=== PATIENT | female | born 1955 | race Caucasian/White ===

== ENCOUNTER 2017-05-12 05:41 | Observation (INO) | payer BC ==
--- NOTE | 2017-05-12 05:49 | EDM.PDOC ---
ED HPI GENERAL MEDICAL PROBLEM - General Chief Complaint: Chest Pain Stated Complaint: CHEST PAINS Time Seen by Provider: 05/12/17 05:46 - History of Present Illness INITIAL COMMENTS - FREE TEXT/NARRATIVE: HISTORY AND PHYSICAL: History of present illness: Patient is a 62-year-old white female presents with chest pain started last night this midsternal vaguely describes no palpitations she equivocates regarding shortness of breath to the no nausea no vomiting no diaphoresis she denies history of known coronary artery disease she is a smoker Review of systems: As per history of present illness and below otherwise all systems reviewed and negative. Past medical history: As per history of present illness and as reviewed below otherwise noncontributory. Surgical history: As per history of present illness and as reviewed below otherwise noncontributory. Social history: No reported history of drug or alcohol abuse. Family history: As per history of present illness and as reviewed below otherwise noncontributory. Physical exam: HEENT: Atraumatic, normocephalic, pupils reactive, negative for conjunctival pallor or scleral icterus, mucous membranes moist, throat clear, neck supple, nontender, trachea midline. Lungs: Clear to auscultation, breath sounds equal bilaterally, chest nontender. Heart: S1S2, regular, negative for clicks, rubs, or JVD. Abdomen: Soft, nondistended, nontender. Negative for masses or hepatosplenomegaly. Negative for costovertebral tenderness. Pelvis: Stable nontender. Genitourinary: Deferred. Rectal: Deferred. Extremities: Atraumatic, negative for cords or calf pain. Neurovascular unremarkable. Neuro: Awake, alert, oriented. Cranial nerves II through XII unremarkable. Cerebellum unremarkable. Motor and sensory unremarkable throughout. Exam nonfocal. Diagnostics: CBC CMP troponin d-dimer PT/INR chest x-ray EKG Therapeutics: IV O2 monitor aspirin 324 mg by mouth Impression: #1 chest pain Definitive disposition and diagnosis as appropriate pending reevaluation and review of above. 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: Musculoskeletal History: Reports: None Neurological History: Reports: Seizure Psychiatric History: Reports: Anxiety Endocrine/Metabolic History: Reports: Hypothyroidism Hematologic History: Reports: None Immunologic History: Reports: None Oncologic (Cancer) History: Reports: None Dermatologic History: Reports: None - Infectious Disease History Infectious Disease History: Reports: Chicken Pox - Past Surgical History Female Surgical History: Reports: Section Social & Family History - Family History Family Medical History: Noncontributory - Tobacco Use Smoking Status *Q: Current Every Day Smoker Years of Tobacco use: 40 Packs/Tins Daily: 1 - Recreational Drug Use Recreational Drug Use: No ED ROS GENERAL - Review of Systems Review Of Systems: ROS reveals no pertinent complaints other than HPI. ED EXAM, GENERAL - Physical Exam Exam: See Below (See dictation) Course - Vital Signs Last Recorded V/S: Last Vital Signs Temp 36.4 C 05/12/17 05:46 Pulse 89 05/12/17 06:21 Resp 17 05/12/17 06:21 BP 90/61 05/12/17 06:21 Pulse Ox 98 05/12/17 06:21 - Orders/Labs/Meds Orders: Active Orders 24 hr Category Date Time Status Chest 1V Frontal [CR] Stat Exams 05/12/17 05:52 Taken Nitroglycerin [Nitrostat] Med 05/12/17 05:56 Active 0.4 mg SL Q5M PRN Sodium Chloride 0.9% [Normal Saline] 1,000 ml Med 05/12/17 06:16 Active IV .Bolus Medication Orders Sodium Chloride (Normal Saline) 1,000 mls @ 999 mls/hr IV .Bolus ONE Stop: 05/12/17 07:16 Last Admin: 05/12/17 06:17 Dose: 999 mls/hr Nitroglycerin (Nitrostat) 0.4 mg SL Q5M PRN PRN Reason: Chest Pain Last Admin: 05/12/17 06:07 Dose: 0.4 mg Admin: 05/12/17 06:04 Dose: 0.4 mg Labs: Laboratory Tests 05/12/17 05/12/17 05/12/17 Range/Units 05:49 05:49 05:49 WBC 6.92 (4.0-11.0) K/uL RBC 5.24 (4.30-5.90) M/uL Hgb 16.0 (12.0-16.0) g/dL Hct 47.3 H (36.0-46.0) % MCV 90.3 (80.0-98.0) fL MCH 30.5 (27.0-32.0) pg MCHC 33.8 (31.0-37.0) g/dL RDW Std Deviation 46.8 (28.0-62.0) fl RDW Coeff of Sheila 14 (11.0-15.0) % Plt Count 180 (150-400) K/uL MPV 10.40 (7.40-12.00) fL Neut % (Auto) 46.4 L (48.0-80.0) % Lymph % (Auto) 39.0 (16.0-40.0) % Branch % (Auto) 10.7 (0.0-15.0) % Eos % (Auto) 3.5 (0.0-7.0) % Baso % (Auto) 0.4 (0.0-1.5) % Neut # (Auto) 3.2 (1.4-5.7) K/uL Lymph # (Auto) 2.7 H (0.6-2.4) K/uL Branch # (Auto) 0.7 (0.0-0.8) K/uL Eos # (Auto) 0.2 (0.0-0.7) K/uL Baso # (Auto) 0.0 (0.0-0.1) K/uL Nucleated RBC % 0.0 /100WBC Nucleated RBCs # 0 K/uL D-Dimer, Quantitative 0.22 (0.0-0.52) mg/LFEU Sodium 141 (136-146) mmol/L Potassium 4.2 (3.5-5.1) mmol/L Chloride 105 (98-110) mmol/L Carbon Dioxide 27 (21-31) mmol/L BUN 9 (6.0-23.0) mg/dL Creatinine 0.9 (0.6-1.5) mg/dL Est Cr Clr Drug Dosing 46.11 mL/min Estimated GFR (MDRD) > 60.0 ml/min Glucose 133 H (60-110) mg/dL Calcium 9.5 (8.8-10.8) mg/dL Total Bilirubin 0.5 (0.1-1.5) mg/dL AST 70 H (5-40) IU/L ALT 92 H (8-54) IU/L Alkaline Phosphatase 64 (40-150) CK-MB (CK-2) 0.7 (0-6.6) ng/ml Troponin I < 0.10 (0.0-0.29) NG/ML Total Protein 8.0 (6.0-8.0) g/dL Albumin 4.6 (3.4-4.8) g/dL Globulin 3.4 (2.0-3.5) g/dL Albumin/Globulin Ratio 1.4 (1.3-2.8) Meds: Medications Generic Name Dose Route Start Last Admin Trade Name Freq PRN Reason Stop Dose Admin Sodium Chloride 1,000 mls @ 999 mls/hr 05/12/17 06:16 05/12/17 06:17 Normal Saline IV 05/12/17 07:16 999 mls/hr .Bolus ONE Administration Nitroglycerin 0.4 mg 05/12/17 05:56 05/12/17 06:07 Nitrostat SL 0.4 mg Q5M PRN Administration Chest Pain Discontinued Medications Generic Name Dose Route Start Last Admin Trade Name Freq PRN Reason Stop Dose Admin Aspirin 324 mg 05/12/17 05:56 05/12/17 06:01 Aspirin PO 05/12/17 05:57 324 mg ONETIME ONE Administration Departure - Departure Time of Disposition: 06:38 Disposition: Refer to Observation Condition: Good Clinical Impression: Chest pain - Discharge Information Forms: ED Department Discharge - My Orders Last 24 Hours: My Active Orders 05/12/17 05:52 Chest 1V Frontal [CR] Stat 05/12/17 05:56 Nitroglycerin [Nitrostat] 0.4 mg SL Q5M PRN 05/12/17 06:16 Sodium Chloride 0.9% [Normal Saline] 1,000 ml IV .Bolus - Assessment/Plan Last 24 Hours: My Active Orders 05/12/17 05:52 Chest 1V Frontal [CR] Stat 05/12/17 05:56 Nitroglycerin [Nitrostat] 0.4 mg SL Q5M PRN 05/12/17 06:16 Sodium Chloride 0.9% [Normal Saline] 1,000 ml IV .Bolus
[2017-05-12] MEDS ORDERED: Aspirin 81 MG Tab.Chew PO ONE (05:56)
[2017-05-12] MEDS: Nitroglycerin 0.4 MG Tab.SL SL PRN ×2 (06:04→06:07)
[2017-05-12] MEDS ORDERED: Sodium Chloride 0.9% 1,000 ML IV ONE (06:16)
[2017-05-12 06:17] LABS: CHLORIDE,CL 105 mmol/L (98-110); SODIUM,NA 141 mmol/L (136-146)
[2017-05-12] MEDS ORDERED: Enoxaparin 40 MG/0.4 ML Syringe SUBCUT SCH (09:00)
[2017-05-12] MEDS ORDERED: Acetaminophen 325 MG Tab PO PRN (09:09)
[2017-05-12] MEDS ORDERED: Fluticasone Propionate Nasal Spray 16 GM Bottle NASBOTH SCH (09:45)
[2017-05-12] MEDS: amLODIPine 5 MG Tab PO SCH ×2 (10:59→11:14)
--- NOTE | 2017-05-12 11:05 | CR ---
EXAM DATE: 05/12/17 PATIENT'S AGE: 62 Patient: DAIN HARDY Facility: [place], [place] Site . Site : [id number] Study: XRay Chest [id number] 6:07:45 AM Ordering Physician: Doctor Soliman Final Report: INDICATION: Chest pain. Cough. TECHNIQUE: Portable AP view of the chest. COMPARISON: None. FINDINGS: The cardiac, mediastinal and hilar contours are unremarkable. The pulmonary vasculature is within normal limits. Lungs are grossly clear. Specifically, there are no appreciable airspace opacities to suggest pneumonia. No appreciable pleural fluid on this single view study. No pneumothorax. Mild scoliosis. No acute bony abnormality. IMPRESSION: No signs of acute cardiopulmonary disease. Dictated by Mitesh Mcleod MD @ 05/12/2017 6:19:17 AM Dictated by: Mitesh Mcleod MD @ 05/12/2017 06:19:24 (Electronic Signature) Report Signed by Proxy. CRISTINA
[2017-05-12] MEDS: Morphine 2 MG/ML Syringe IVPUSH PRN ×3 (11:06→22:53)
[2017-05-12] MEDS ORDERED: Cyclobenzaprine 10 MG Tab PO PRN (13:18)
[2017-05-12] MEDS: ClonazePAM 1 MG Tab PO SCH ×2 (13:29→21:21)
--- NOTE | 2017-05-12 16:44 | PCM.HP ---
H&P History of Present Illness - General Date of Service: 05/12/17 Admit Problem/Dx: Admission Diagnosis/Problem Admission Diagnosis/Problem Chest pain Source of Information: Patient History Limitations: Reports: No Limitations - History of Present Illness Initial Comments - Free Text/Narative: 62-year-old female with a past history of hypertension, anxiety, depression that presented to the emergency department this morning complaining of shortness of breath and possible chest pain. As per the patient, she has been experiencing a cough and cold-like symptoms since this past which she describes as "the worst cold of her life ". She also told the ER physician that she has chest pain that occurs with concurrence with the cough. Talking to the patient myself, she denies any active chest pain with or without cough now. Her primary complaint is shortness of breath. She also claims of subjective fevers and chills. Denies any nausea or vomiting, abdominal pain, numbness or tingling. Middle Chest Pain Score (Numeric/FACES): 5 - Related Data Allergies/Adverse Reactions: Allergies Allergy/AdvReac Type Severity Reaction Status Date / Time No Known Allergies Allergy Verified 05/12/17 05:50 Home Medications: Home Meds Levothyroxine [Synthroid] 137 mcg PO ACBREAKFAST 09/14/15 [History] ClonazePAM [KlonoPIN] 1 mg PO TID 05/12/17 [History] amLODIPine [Norvasc] 5 mg PO DAILY 05/12/17 [History] buPROPion [Wellbutrin] 150 mg PO DAILY 05/12/17 [History] Past Medical History HEENT History: Reports: Impaired Vision Other HEENT History: wears glasses Cardiovascular History: Reports: None Respiratory History: Reports: None Gastrointestinal History: Reports: None Genitourinary History: Reports: None 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 OB/BYN History: Had 3 in the past Musculoskeletal History: Reports: None Neurological History: Reports: Seizure Psychiatric History: Reports: Anxiety Endocrine/Metabolic History: Reports: Hypothyroidism Hematologic History: Reports: None Immunologic History: Reports: None Oncologic (Cancer) History: Reports: None Dermatologic History: Reports: None - Infectious Disease History Infectious Disease History: Reports: Chicken Pox - Past Surgical History Female Surgical History: Reports: Section Social & Family History - Family History Family Medical History: Noncontributory - Tobacco Use Smoking Status *Q: Current Every Day Smoker Years of Tobacco use: 40 Packs/Tins Daily: 0.3 Second Hand Smoke Exposure: Yes - Caffeine Use Caffeine Use: Reports: Coffee - Recreational Drug Use Recreational Drug Use: No H&P Review of Systems - Review of Systems: Review Of Systems: See Below General: Reports: Fever, Chills HEENT: Reports: Sore Throat Pulmonary: Reports: Shortness of Breath, Pleuritic Chest Pain Cardiovascular: Reports: Chest Pain Gastrointestinal: Reports: No Symptoms Genitourinary: Reports: No Symptoms Musculoskeletal: Reports: No Symptoms Skin: Reports: No Symptoms Psychiatric: Reports: No Symptoms Neurological: Reports: No Symptoms Hematologic/Lymphatic: Reports: No Symptoms Immunologic: Reports: No Symptoms Exam - Exam Exam: See Below - Vital Signs Vital Signs: Last Vital Signs Temp 36.6 C 05/12/17 16:00 Pulse 57 L 05/12/17 16:00 Resp 18 05/12/17 16:00 BP 117/65 05/12/17 16:00 Pulse Ox 98 05/12/17 16:00 Weight: 44.452 kg - Exam Quality Assessment: Supplemental Oxygen General: Alert, Oriented, Cooperative HEENT: Conjunctiva Clear, EACs Clear, EOMI, Mucosa Moist & [place], Nares Patent Neck: Supple, Trachea Midline Lungs: Clear to Auscultation, Normal Respiratory Effort Cardiovascular: Regular Rate, Regular Rhythm, Normal S1, Normal S2 GI/Abdominal Exam: Normal Bowel Sounds, Soft, Non-Tender, No Organomegaly, No Distention, No Abnormal Bruit Back Exam: Normal Inspection Extremities: Normal Inspection, Normal Range of Motion, Non-Tender, No Pedal Edema, Normal Capillary Refill - Patient Data Lab Results Last 24 hrs: Laboratory Results - last 24 hr 05/12/17 Range/Units 11:59 Troponin I < 0.10 (0.0-0.29) NG/ML Result Diagrams: 05/12/17 05:49 05/12/17 05:49 Shaggy Results Last 24 hrs: Microbiology 05/12/17 09:40 Influenza Type A Antigen Screen - Final Nasopharyngeal Swab - Nare, Left NEGATIVE INFLUENZA A VIRUS AG Influenza Type B Antigen Screen - Final NEGATIVE INFLUENZA B VIRUS AG *Q Meaningful Use (ADM) - VTE *Q VTE Criteria *Q: - Stroke *Q Stroke Criteria *Q: - AMI *Q AMI Criteria *Q: Problem List Initiated/Reviewed/Updated: Yes Orders Last 24hrs: Active Orders 24 hr Category Date Time Status Oxygen Therapy [RC] PRN Care 05/12/17 08:06 Active Telemetry Monitoring [Cardiac Monitoring] [RC] Q8H Care 05/12/17 08:23 Active Up ad Hailey [RC] ASDIRECTED Care 05/12/17 08:06 Active VTE/DVT Education [RC] PER UNIT ROUTINE Care 05/12/17 08:06 Active Vital Signs [RC] Q4H Care 05/12/17 08:06 Active Regular Diet [DIET] Diet 05/12/17 Lunch Active Echo 2D wo Cont [US] Routine Exams 05/12/17 08:10 Taken TROPONIN I [CHEM] Routine Lab 05/12/17 17:50 Ordered Acetaminophen [Tylenol] Med 05/12/17 09:09 Active 650 mg PO Q4H PRN ClonazePAM [KlonoPIN] Med 05/12/17 14:00 Active 1 mg PO TID Cyclobenzaprine [Flexeril] Med 05/12/17 13:18 Active 10 mg PO TID PRN Enoxaparin [Lovenox] Med 05/12/17 09:00 Active 40 mg SUBCUT DAILY Fluticasone Propionate [Flonase] Med 05/12/17 09:45 Active 1 gm NASBOTH DAILY Levothyroxine Med 05/13/17 07:30 Active 112 mcg PO ACBRK Levothyroxine Med 05/13/17 07:30 Active 25 mcg PO ACBRK Morphine Med 05/12/17 08:06 Active 2 mg IVPUSH Q2H PRN amLODIPine [Norvasc] Med 05/12/17 09:00 Active 5 mg PO DAILY Resuscitation Status Routine Resus Stat 05/12/17 08:06 Ordered Medication Orders Acetaminophen (Tylenol) 650 mg PO Q4H PRN PRN Reason: Pain Amlodipine Besylate (Norvasc) 5 mg PO DAILY [facility] Last Admin: 05/12/17 11:14 Dose: Clonazepam (Klonopin) 1 mg PO TID [facility] Last Admin: 05/12/17 13:29 Dose: 1 mg Cyclobenzaprine HCl (Flexeril) 10 mg PO TID PRN PRN Reason: Pain Last Admin: 05/12/17 13:29 Dose: 10 mg Enoxaparin Sodium (Lovenox) 40 mg SUBCUT DAILY [facility] Last Admin: 05/12/17 11:01 Dose: 40 mg Fluticasone Propionate (Flonase) 1 gm NASBOTH DAILY [facility] Last Admin: 05/12/17 11:04 Dose: 1 squirt Levothyroxine Sodium (Levothyroxine) 112 mcg PO ACBRK [facility] Levothyroxine Sodium (Levothyroxine) 25 mcg PO ACBRK [facility] Morphine Sulfate (Morphine) 2 mg IVPUSH Q2H PRN PRN Reason: Pain (severe 7-10) Stop: 05/13/17 08:06 Last Admin: 05/12/17 15:35 Dose: 2 mg Admin: 05/12/17 11:06 Dose: 2 mg Nitroglycerin (Nitrostat) 0.4 mg SL Q5M PRN PRN Reason: Chest Pain Last Admin: 05/12/17 06:07 Dose: 0.4 mg Admin: 05/12/17 06:04 Dose: 0.4 mg Assessment/Plan Comment:: Assessment: #1. ACS rule out #2. Shortness of breath #3. Chest pain with cough that is intermittent #4. Back pain #5. History of hypertension, anxiety, depression Plan: #1. Admit to the floor for observation #2. Vital signs per floor routine #3. ins and outs per floor routine #4. Cardiac telemetry #5. Troponin every 6 hours for 2 more aids. Initial troponin was negative #6. Echo cardiogram #7. Flexeril for back pain 10 mg by mouth 3 times a day #8. Anticipate discharge tomorrow
[2017-05-13] MEDS: ClonazePAM 1 MG Tab PO SCH (05:20)
[2017-05-13] MEDS: Morphine 2 MG/ML Syringe IVPUSH PRN (05:20)
[2017-05-13 05:51] LABS: CHLORIDE,CL 113 mmol/L (98-110); SODIUM,NA 143 mmol/L (136-146)
[2017-05-13] MEDS ORDERED: Levothyroxine 100 MCG Tab PO SCH (07:30)
[2017-05-13] MEDS ORDERED: Levothyroxine 112 MCG Tab PO SCH (07:30)
[2017-05-13] MEDS ORDERED: Levothyroxine 25 MCG Tab PO SCH (07:30)
[2017-05-13 08:07] VITALS: BP 123/65
--- NOTE | 2017-05-13 10:40 | PCM.DCSUM1 ---
<Nic Martinez - Last Filed: 05/13/17 10:35> Discharge Summary - Hospital Course Free Text/Narrative:: Admission Date: 05/12/2017 Discharge Date: 05/13/2017 Admission diagnoses: #1. ACS rule out #2. Shortness of breath #3. Intermittent chest pain #4. Back pain #5. Hx of hypertension, depression, anxiety Discharge diagnoses: #1. ACS rule out - negative. Patient left AMA #2. Hx of hypertension, depression, anxiety Hospital Course: 62 F with a past mhx as stated above presented with a chief complaint of shortness of breath and cold like symptoms for the past week. The patient also complained of chest pain worsened by cough. She was then admitted for observation and ACS rule out. Troponin x3 were negative, there were no events on telemetry. Echocardiogram was obtained. Influenza nasopharyngeal swab testing was negative. The patient was frustrated during her stay and wanted to leave the same night. She was spoken to and was advised to stay for the full ACS workup. She agreed. The next morning, the patient was anxious to leave and was not willing to wait until paperwork was completed for a formal discharge. She then left AMA. She was advised to return if she experiences chest pain, shortness of breath, nausea, vomiting at the time of discharge. Follow up: patient was advised to follow up with her PCP but left AMA. An appointment wasnt made. - Discharge Data Discharge Date: 05/13/17 Discharge Disposition: Against Medical Advice 07 Condition: Fair - Patient Instructions Diet: Usual Diet as Tolerated Driving: May Drive Today Showering/Bathing: May Shower Notify Provider of: Fever, Increased Pain, Nausea and/or Vomiting - Discharge Plan Home Medications: Home Meds Levothyroxine [Synthroid] 137 mcg PO ACBREAKFAST 09/14/15 [History] ClonazePAM [KlonoPIN] 1 mg PO TID 05/12/17 [History] amLODIPine [Norvasc] 5 mg PO DAILY 05/12/17 [History] buPROPion [Wellbutrin] 150 mg PO DAILY 05/12/17 [History] Forms: ED Department Discharge Referrals: PCP,None [Primary Care Provider] - - Patient Data Vitals - Most Recent: Last Vital Signs Temp 36.5 C 05/13/17 08:00 Pulse 62 05/13/17 08:00 Resp 18 05/13/17 08:00 BP 123/65 05/13/17 08:00 Pulse Ox 100 05/13/17 08:00 Weight - Most Recent: 44.452 kg I&O - Last 24 hours: Intake & Output 05/12/17 05/13/17 05/13/17 22:59 06:59 14:59 Intake Total 1120 600 Output Total 800 1500 Balance 320 -900 Lab Results - Last 24 hrs: Laboratory Results - last 24 hr 05/12/17 05/12/17 05/13/17 Range/Units 11:59 18:10 05:17 WBC (4.0-11.0) K/uL RBC (4.30-5.90) M/uL Hgb (12.0-16.0) g/dL Hct (36.0-46.0) % MCV (80.0-98.0) fL MCH (27.0-32.0) pg MCHC (31.0-37.0) g/dL RDW Std Deviation (28.0-62.0) fl RDW Coeff of Sheila (11.0-15.0) % Plt Count (150-400) K/uL MPV (7.40-12.00) fL Neut % (Auto) (48.0-80.0) % Lymph % (Auto) (16.0-40.0) % Emmet % (Auto) (0.0-15.0) % Eos % (Auto) (0.0-7.0) % Baso % (Auto) (0.0-1.5) % Neut # (Auto) (1.4-5.7) K/uL Lymph # (Auto) (0.6-2.4) K/uL Emmet # (Auto) (0.0-0.8) K/uL Eos # (Auto) (0.0-0.7) K/uL Baso # (Auto) (0.0-0.1) K/uL Nucleated RBC % /100WBC Nucleated RBCs # K/uL Sodium 143 (136-146) mmol/L Potassium 4.6 (3.5-5.1) mmol/L Chloride 113 H (98-110) mmol/L Carbon Dioxide 24 (21-31) mmol/L BUN 9 (6.0-23.0) mg/dL Creatinine 0.7 (0.6-1.5) mg/dL Est Cr Clr Drug Dosing 59.22 mL/min Estimated GFR (MDRD) > 60.0 ml/min Glucose 96 (60-110) mg/dL Calcium 8.8 (8.8-10.8) mg/dL Troponin I < 0.10 < 0.10 (0.0-0.29) NG/ML 05/13/17 Range/Units 05:17 WBC 5.65 (4.0-11.0) K/uL RBC 4.79 (4.30-5.90) M/uL Hgb 14.4 (12.0-16.0) g/dL Hct 42.9 (36.0-46.0) % MCV 89.6 (80.0-98.0) fL MCH 30.1 (27.0-32.0) pg MCHC 33.6 (31.0-37.0) g/dL RDW Std Deviation 45.7 (28.0-62.0) fl RDW Coeff of Sheila 14 (11.0-15.0) % Plt Count 157 (150-400) K/uL MPV 10.40 (7.40-12.00) fL Neut % (Auto) 49.1 (48.0-80.0) % Lymph % (Auto) 38.1 (16.0-40.0) % Emmet % (Auto) 9.2 (0.0-15.0) % Eos % (Auto) 3.2 (0.0-7.0) % Baso % (Auto) 0.4 (0.0-1.5) % Neut # (Auto) 2.8 (1.4-5.7) K/uL Lymph # (Auto) 2.2 (0.6-2.4) K/uL Emmet # (Auto) 0.5 (0.0-0.8) K/uL Eos # (Auto) 0.2 (0.0-0.7) K/uL Baso # (Auto) 0.0 (0.0-0.1) K/uL Nucleated RBC % 0.0 /100WBC Nucleated RBCs # 0 K/uL Sodium (136-146) mmol/L Potassium (3.5-5.1) mmol/L Chloride (98-110) mmol/L Carbon Dioxide (21-31) mmol/L BUN (6.0-23.0) mg/dL Creatinine (0.6-1.5) mg/dL Est Cr Clr Drug Dosing mL/min Estimated GFR (MDRD) ml/min Glucose (60-110) mg/dL Calcium (8.8-10.8) mg/dL Troponin I (0.0-0.29) NG/ML [id number] Results - Last 24 hrs: Microbiology 05/12/17 09:40 Influenza Type A Antigen Screen - Final Nasopharyngeal Swab - Nare, Left NEGATIVE INFLUENZA A VIRUS AG Influenza Type B Antigen Screen - Final NEGATIVE INFLUENZA B VIRUS AG Med Orders - Current: Current Medications Discontinued Medications Acetaminophen (Tylenol) 650 mg PO Q4H PRN PRN Reason: Pain Amlodipine Besylate (Norvasc) 5 mg PO DAILY [facility] Last Admin: 05/12/17 11:14 Dose: Not Given Aspirin (Aspirin) 324 mg PO ONETIME ONE Stop: 05/12/17 05:57 Last Admin: 05/12/17 06:01 Dose: 324 mg Clonazepam (Klonopin) 1 mg PO TID [facility] Last Admin: 05/13/17 05:20 Dose: 1 mg Cyclobenzaprine HCl (Flexeril) 10 mg PO TID PRN PRN Reason: Pain Last Admin: 05/12/17 13:29 Dose: 10 mg Enoxaparin Sodium (Lovenox) 40 mg SUBCUT DAILY [facility] Last Admin: 05/12/17 11:01 Dose: 40 mg Fluticasone Propionate (Flonase) 1 gm NASBOTH DAILY [facility] Last Admin: 05/12/17 11:04 Dose: 1 squirt Sodium Chloride (Normal Saline) 1,000 mls @ 999 mls/hr IV .Bolus ONE Stop: 05/12/17 07:16 Last Admin: 05/12/17 06:17 Dose: 999 mls/hr Levothyroxine Sodium (Levothyroxine) 112 mcg PO ACBRK [facility] Last Admin: 05/13/17 06:54 Dose: 112 mcg Levothyroxine Sodium (Levothyroxine) 25 mcg PO ACBRK [facility] Last Admin: 05/13/17 06:54 Dose: 25 mcg Morphine Sulfate (Morphine) 2 mg IVPUSH Q2H PRN PRN Reason: Pain (severe 7-10) Stop: 05/13/17 08:06 Last Admin: 05/13/17 05:20 Dose: 2 mg Nitroglycerin (Nitrostat) 0.4 mg SL Q5M PRN PRN Reason: Chest Pain Last Admin: 05/12/17 06:07 Dose: 0.4 mg *Q Meaningful Use (DIS) - VTE *Q VTE Criteria *Q: - Stroke *Q Stroke Criteria *Q: - AMI *Q AMI Criteria *Q: <Werner Swartz - Last Filed: 05/14/17 15:39> Discharge Summary - Hospital Course Free Text/Narrative:: I performed a history and physical examination of the patient and I have discussed the management with the resident. I have reviewed the residents note and agree with the documented findings and plan of care - Patient Data Vitals - Most Recent: Last Vital Signs Temp 36.5 C 05/13/17 08:00 Pulse 62 05/13/17 08:00 Resp 18 05/13/17 08:00 BP 123/65 05/13/17 08:00 Pulse Ox 100 05/13/17 08:00 Med Orders - Current: Current Medications Discontinued Medications Acetaminophen (Tylenol) 650 mg PO Q4H PRN PRN Reason: Pain Amlodipine Besylate (Norvasc) 5 mg PO DAILY [facility] Last Admin: 05/12/17 11:14 Dose: Not Given Aspirin (Aspirin) 324 mg PO ONETIME ONE Stop: 05/12/17 05:57 Last Admin: 05/12/17 06:01 Dose: 324 mg Clonazepam (Klonopin) 1 mg PO TID [facility] Last Admin: 05/13/17 05:20 Dose: 1 mg Cyclobenzaprine HCl (Flexeril) 10 mg PO TID PRN PRN Reason: Pain Last Admin: 05/12/17 13:29 Dose: 10 mg Enoxaparin Sodium (Lovenox) 40 mg SUBCUT DAILY [facility] Last Admin: 05/12/17 11:01 Dose: 40 mg Fluticasone Propionate (Flonase) 1 gm NASBOTH DAILY [facility] Last Admin: 05/12/17 11:04 Dose: 1 squirt Sodium Chloride (Normal Saline) 1,000 mls @ 999 mls/hr IV .Bolus ONE Stop: 05/12/17 07:16 Last Admin: 05/12/17 06:17 Dose: 999 mls/hr Levothyroxine Sodium (Levothyroxine) 112 mcg PO BRK [facility] Last Admin: 05/13/17 06:54 Dose: 112 mcg Levothyroxine Sodium (Levothyroxine) 25 mcg PO ACBRK [facility] Last Admin: 05/13/17 06:54 Dose: 25 mcg Morphine Sulfate (Morphine) 2 mg IVPUSH Q2H PRN PRN Reason: Pain (severe 7-10) Stop: 05/13/17 08:06 Last Admin: 05/13/17 05:20 Dose: 2 mg Nitroglycerin (Nitrostat) 0.4 mg SL Q5M PRN PRN Reason: Chest Pain Last Admin: 05/12/17 06:07 Dose: 0.4 mg *Q Meaningful Use (DIS) - VTE *Q VTE Criteria *Q: - Stroke *Q Stroke Criteria *Q: - AMI *Q AMI Criteria *Q:
--- NOTE | 2017-05-14 18:07 | ECHO ---
The echocardiogram report can be seen in this patient's EMR (electronic medical records) in the Reports section. The report has also been scanned into PACS and can be seen there. CRISTINA
== END 2017-05-13 07:50 | disposition left against medical advice (07) ==
LOC: MW.ED 05:41 → MW.MS 06:38
PROVIDERS: ADMIT Internal Medicine; ATTEND Internal Medicine
DX: R07.9 Chest pain, unspecified (principal); R06.02 Shortness of breath; I10 Essential (primary) hypertension; E03.9 Hypothyroidism, unspecified; F17.210 Nicotine dependence, cigarettes, uncomplicated; M54.9 Dorsalgia, unspecified; Z79.899 Other long term (current) drug therapy; Z53.21 Procedure and treatment not carried out due to patient leaving prior to being seen by health care provider
CPT/HCPCS: 36415; 71010; 80048; 80053; 80061; 82553; 83036; 84484; 85025; 85379; 87804; 93005; 93307; 96360; 99285; A9270; J1650; J2270; J7040; 96361; 96372; 96374; 96376; 99283; G0378